=== PATIENT | male | born 1985 | race Hispanic/Latino ===

== ENCOUNTER 2024-01-18 12:57 | Emergency (ER) | payer OTHER ==
[~2024-01-18] VITALS: Ht 172.7 cm; Wt 85.9 kg
[2024-01-18] MEDS: LACTATED RINGER'S 1,000 ML INJ ONE (13:48)
[2024-01-18] MEDS ORDERED: FAMOTIDINE 20 MG/2 ML VIAL IV ONE (13:49)
[2024-01-18] MEDS ORDERED: LACTATED RINGER'S 1,000 ML ONE (13:49)
[2024-01-18] MEDS ORDERED: ONDANSETRON HCL INJ 2MG/ML 2ML 2 MG/ML VIAL ONE ×2 (13:49→14:35)
[2024-01-18] MEDS ORDERED: KETOROLAC TROMETHAMINE 30 MG/ML VIAL ONE (13:49)
[2024-01-18] MEDS: KETOROLAC TROMETHAMINE 30 MG/ML VIAL IV ONE (13:49)
[2024-01-18] MEDS: FAMOTIDINE 20 MG/2 ML VIAL IV ONE (13:50)
[2024-01-18] MEDS: ONDANSETRON HCL INJ 2MG/ML 2ML 2 MG/ML VIAL IV ONE ×2 (13:51→14:33)
[2024-01-18] MEDS ORDERED: MAALOX MAXIMUM355 ML PO (14:23)
[2024-01-18] MEDS ORDERED: ONDANSETRON ODT4 MG PO (14:23)
[2024-01-18] MEDS ORDERED: FAMOTIDINE20 MG PO (14:23)
[2024-01-18] MEDS: SODIUM CHLORIDE 0.9% 500ML 500 ML IV STA (14:34)
[2024-01-18] MEDS ORDERED: SODIUM CHLORIDE 0.9% 500ML 500 ML ONE (14:35)
[2024-01-18 15:14] VITALS: BP 168/88; PULSE 68; RESP 18; TEMP 98.1; O2SAT 98
== END 2024-01-18 15:33 | disposition home or self-care (01) ==
LOC: FSED 12:58
DX: R11.2 Nausea with vomiting, unspecified (principal); K52.9 Noninfective gastroenteritis and colitis, unspecified; E86.0 Dehydration; K29.70 Gastritis, unspecified, without bleeding; E11.65 Type 2 diabetes mellitus with hyperglycemia
CPT/HCPCS: 74176; 80053; 80076; 81003; 85025; 99282; J1885; J2405; J7040; J7121